=== PATIENT | male | born 1960 | race Caucasian/White ===

== ENCOUNTER 2020-10-22 08:11 | Outpatient (REF) | payer OTHER, SELFPAY ==
[2020-10-22 09:10] LABS: MANUAL DIFF FLAG NO
[2020-10-22 09:14] LABS: Basophils Percent Auto 0.3 % (0-2); Eosinophils Absolute Auto 0.1 X10*3/uL (0.0-0.4); Eosinophils Percent Auto 1.5 % (0-4); Hematocrit 43.5 % (42-52); Hemoglobin 14.4 g/dl (14.0-18.0); Imm Gran Abs Auto 0.02 X10*3/uL (0.00-0.03); Imm Gran Pct Auto 0.3 % (0.0-0.4); Lymphocytes Absolute Auto 2.9 X10*3/uL (1.2-4.9); Lymphocytes Percent Auto 43.7 % (20-40); Mean Corpuscular HGB Conc 33.1 g/dl (31.0-36.0); Mean Corpuscular Hemoglobin 33.3 pg (27.0-33.0); Mean Corpuscular Volume 100.5 fL (80-98); Mean Platelet Volume 9.7 fL (9.4-12.4); Monocytes Absolute Auto 0.7 X10*3/uL (0.1-1.2); Monocytes Percent Auto 10.3 % (2-11); Neutrophils Absolute Auto 2.9 X10*3/uL (2.0-8.3); Neutrophils Percent Auto 43.9 % (45-73); Platelet Count 217 X10*3/uL (160-400); Red Blood Count 4.33 X10*6/uL (4.60-5.80); White Blood Count 6.6 X10*3/uL (4.8-10.8)
[2020-10-22 09:45] LABS: Alanine Aminotransferase 19 U/L (0-40); Albumin Level 4.4 g/dL (3.5-5.0); Alkaline Phosphatase 76 U/L (39-117); Anion Gap 11 (12-20); Aspartate Amino Transferase 20 U/L (5-37); Bilirubin Total 0.8 mg/dL (0.0-1.0); Blood Urea Nitrogen 23 mg/dL (9-16); Calcium 9.6 mg/dL (8.4-10.2); Carbon Dioxide 29 mmol/L (22-29); Chloride 106 mmol/L (96-108); Cholesterol 223 mg/dL; Estimated Glomerular Filt Rate > 60; Glucose Fasting 102 mg/dL (60-99); HDL Cholesterol 57 mg/dL; LDL Cholesterol Calculated 143 mg/dl; Potassium 4.7 mmol/L (3.3-5.1); Sodium 141 mmol/L (135-145); Total Protein 7.2 g/dL (6.5-8.0); Triglycerides 116 mg/dL
[2020-10-22 10:08] LABS: Thyroid Stimulating Hormone 1.92 uIU/mL (0.32-4.0)
== END 2020-10-22 08:12 | disposition home or self-care (01) ==
LOC: HO.LAB 08:11
PROVIDERS: PCP Internal Medicine; Visit Provider Internal Medicine
DX: Z00.00 Encounter for general adult medical examination without abnormal findings (principal); E03.9 Hypothyroidism, unspecified; E11.9 Type 2 diabetes mellitus without complications
CPT/HCPCS: 36415; 80053; 80061; 84443; 85025

== ENCOUNTER → 2020-11-16 11:44 | Outpatient (BNVA) | payer OTHER, SELFPAY | PROVIDERS: PCP Internal Medicine; Visit Provider Physician Assistant | DX: Z12.11 Encounter for screening for malignant neoplasm of colon (principal); K64.9 Unspecified hemorrhoids | CPT/HCPCS: Q3014 ==

== ENCOUNTER 2020-12-30 12:35 | Day surgery (SDC) | payer OTHER, SELFPAY ==
[2020-12-24 11:13] VITALS: BMI 29.7
--- NOTE | 2020-12-29 09:08 | HO.ANESPROP2 ---
Documented by User: Zahraa Loja 12/29/20 09:08 HPI - Anesthesia Eval Consult details Narrative: 60yo M for Colonoscopy PMFSH Active Problems Active Problems: All Active Problems (Updated 11/16/20 @ 12:03 by Lidia Oconnor PA-C) Hemorrhoids (Acute) Encounter for screening colonoscopy (Acute) Physical exam (Acute) Past Medical History Medical History Hemorrhoids Family History Family History Father No problems noted. Mother No problems noted. Surgical History Surgical History Hx of wisdom tooth extraction Social History Social History Household Members: Friend(s) Are you a primary post acute care registered nurse to a significant other at home: No Do you presently have visiting nurse or other home services: No Alcohol intake: current Alcohol intake frequency: other Cigarettes Per Day: 20 Are you DNR?: No Advance Directives: No Advance Directives Information Provided: No Advance Directives on File: No Recently lost weight without trying: No Eating poorly because of decreased appetite: No Nutrition Risks: No Nutritional Risk Current occupational status: employed Meds Allergies Allergy/AdvReac Type Severity Reaction Status Date / Time No Known Allergies Allergy Verified 12/24/20 08:18 Exam Exam Date and Time: December 29, 2020 0908 Height,Weight and Vital Signs: Height 5 ft 10 in Weight 93.894 kg Assessment and Plan Assessment Anesthesia Assessment: Chart Reviewed Documented by User: Alexander Chaudhry MD 12/30/20 12:51 PMFSH Past Medical History Medical History Hemorrhoids Family History Family History Father No problems noted. Mother No problems noted. Surgical History Surgical History Hx of wisdom tooth extraction Social History Social History Household Members: Friend(s) Are you a primary post acute care registered nurse to a significant other at home: No Do you presently have visiting nurse or other home services: No Alcohol intake: current Alcohol intake frequency: other Cigarettes Per Day: 20 Are you DNR?: No Advance Directives: No Advance Directives Information Provided: No Advance Directives on File: No Recently lost weight without trying: No Eating poorly because of decreased appetite: No Nutrition Risks: No Nutritional Risk Current occupational status: employed Meds Allergies Allergy/AdvReac Type Severity Reaction Status Date / Time No Known Allergies Allergy Verified 12/24/20 08:18 Assessment and Plan Assessment Anesthesia Assessment: Anesthesia Plan Discussed and Chart Reviewed Final Anesthetic Review NPO: Yes ASA Class: II Final Preanesthetic Review: No Changes in Pt Med Stat, Meds/Allgs Chart Reviewed, Consent Obtained/Reviewed and Anes Risks/Benef Reviewed Patient Risk: Low Procedure Risk: Low Anesthetic Plan Anesthetic Plan: MAC: Disposition: Standard PACU
[2020-12-30 12:56] VITALS: BP 135/94; PULSE 83; RESP 18; TEMP 36.4; O2SAT 99
--- NOTE | 2020-12-30 13:04 | MHC.SHP ---
Pre-Procedural Eval Section B Chief Complaint: Screening Relevant Family History (Specify if Yes): No Relevant Social History: Tobacco Use Present Medications: see Short Stay Collaborative assessment Medical History: Significant History (Hemorrhoids) History of Previous Operations: Relevant previous surgery/procedure and date(s) (wisdom toothe xtraction) Allergies: Allergies Allergy/AdvReac Type Severity Reaction Status Date / Time No Known Allergies Allergy Verified 12/30/20 12:54 Review of Systems Sugical H&P ROS: Negative: Constitution, Cardiovascular, Respiratory, Neurological, Psychiatric, Hem-Onc, Allergic/Immunologic, Gastrointestinal, Genitourinary, Musculoskeletal, Integumentary, Endocrine and Eyes/Ears/Nose/Throat Exam Surgical H&P Exam: Normal: HEENT, Normal: Heart, Normal: Lungs, Normal: Extremities, Normal: Abdomen, Normal: Skin and Normal: Neurological Plan Diagnosis/Plan: Unchanged I have reviewed the history and physical and performed a pertinent physical examination on my patient. No changes have occurred unless specified.
[2020-12-30] MEDS: Lactated Ringers 1,000 ML 100 ML IVCONT (13:19)
--- NOTE | 2020-12-30 13:41 | PM.OP ---
Brief Operative Note Date of Service: 12/30/20 Pre-op diagnosis: colon screen Post-op diagnosis: same Procedure: see op note Surgeon: Aisha Ocampo MD Anesthesia: MAC Was an Cloth Doubling Machine Operator used for this Procedure?: No Estimated blood loss (mL): 0 Condition: stable Disposition: PACU
--- NOTE | 2020-12-30 13:42 | P.OP_ITS ---
Operative Note Operative Note Date of Service: 12/30/20 Narrative: Operative Information Procedure Description: Colonoscopy COLONOSCOPY Instrument: Olympus variable stiffness pediatric scope 190L Colonoscopy Monitoring: Vital signs and clinical assessment, continuous EKG monitoring, Pulse oximetry, Carbon Dioxide monitoring and blood pressure monitoring were done throughout the procedure. Colon withdrawal time was 10 minutes. Procedure: The patient was placed in the left lateral decubitis position and pre-procedure medications were administered. After a digital rectal examination of the ano-rectum, the video colonoscope was inserted into the rectum and advanced through the colon to the cecum/TI. The colonoscope was slowly withdrawn in a retrograde panoramic fashion and the colon mucosa was carefully examined including a retroflexed view of the rectum. Findings and interventions are described below. Procedure Difficulty:easy Findings: Terminal Ileum-normal Cecum: 4-6 mm sessile polyp removed with forceps Ascending Colon: normal Transverse Colon -normal Descending Colon: 8-10 mm sessile polyp removed with forceps Sigmoid Colon: scattered small diverticula noted, moderate severity Rectum: Retroflexion with moderate sized inflammed internal hemorrhoids, grade II Anorectum - internal hemorrhoids seen at anal verge Colon preparation: [place] Bowel Preparation Scale Right colon; 2 Transverse colon: 3 Left colon; 3 (0 = Unprepared colon segment with mucosa not seen due to solid stool that cannot be cleared. 1 = Portion of mucosa of the colon segment seen, but other areas of the colon segment not well seen due to staining, residual stool and/or opaque liquid. 2 = Minor amount of residual staining, small fragments of stool and/or opaque liquid, but mucosa of colon segment seen well. 3 = Entire mucosa of colon segment seen well with no residual staining, small fragments of stool or opaque liquid) Impression and Post Procedure Diagnosis: polyps internal hemorrhoids diverticular disease Plan: High fiber diet leaflet Avoid straining at stool, epsom salts and sitz bath, anusol supps or cream Repeat Colonoscopy in 5-7 years or earlier if clinically indicated Above findings were reviewed with the patient and relevant handouts were provided if indicated.
[2020-12-30 14:20] VITALS: BP 111/66; PULSE 72; RESP 16; TEMP 36.3; O2SAT 97
[2020-12-30 14:35] VITALS: BP 122/83; PULSE 65; RESP 18; TEMP 36.3; O2SAT 97
== END 2020-12-30 15:22 | disposition home or self-care (01) ==
PROVIDERS: PCP Internal Medicine; Visit Provider Internal Medicine Gastroenterology
PROC: 0DJD8ZZ Inspection of Lower Intestinal Tract, Via Natural or Artificial Opening Endoscopic (ICD-10-PCS; CPT 45378; principal; 2020-12-30 13:50)
DX: Z12.11 Encounter for screening for malignant neoplasm of colon (principal); D12.4 Benign neoplasm of descending colon; K63.5 Polyp of colon; K57.30 Diverticulosis of large intestine without perforation or abscess without bleeding; K64.1 Second degree hemorrhoids; F17.210 Nicotine dependence, cigarettes, uncomplicated; F10.10 Alcohol abuse, uncomplicated
CPT/HCPCS: 45380; 88305

== ENCOUNTER 2021-04-01 08:16 | Outpatient (REF) | payer OTHER, SELFPAY ==
--- NOTE | 2021-04-06 11:45 | MHC.AU.ANO ---
Adult Audiological Evaluation Date of Visit: 04/01/21 Reason for Appointment: Long-standing history of hearing difficulty, first diagnosed in 2001. Patient questions if there has been a change in his hearing. Patient has never used hearing aids. Does patient feel they have a hearing loss?: Yes If Yes, Which Ear?: Both Ears Ear History: Ear Deformity: None Reported Recent Ear Drainage: None Reported Recent Ear Pain: None Reported Family History of Hearing Loss?: Yes: Father Recent Ear Infections: None Reported Ear Infections in Childhood: None Reported History of Ear Wax Buildup: None Reported Previous Ear Surgery: None Reported Bothersome Tinnitus/Ringing/Noises in Ears: Both Ears Ear used on the phone: Right Ear Blocked/Full Sensation in Ear(s): None Reported History of occupational noise exposure?: Yes: [employer]- 40 Years History: No Otoscopy: Right Ear: Unremarkable Left Ear: Unremarkable Tympanometry: Tympanometry performed due to: To assess integrity of the middle ear system Right Ear: Normal Middle Ear System (Type A) Left Ear: Normal Middle Ear System (Type A) Hearing Evaluation: Transducer(s) Used: Insert Earphones Method: Conventional Audiometry Stimuli Used: Pure Tones Right Ear: Description of Hearing: Normal from 250-1500 Hz, steeply sloping to moderately-severe/severe sensorineural hearing loss Left Ear: Description of Hearing: Normal from 250-1500 Hz, steeply sloping to moderately-severe/severe sensorineural hearing loss Speech Recognition Threshold (SRT): Method Used: Recorded Lists Stimuli Used: Spondee Words Right Ear: 15 dBHL Left Ear: 15 dBHL Word Discrimination: Method: Recorded Lists Word Lists Used: W-22 Right Ear: 96% at 65 dBHL Left Ear: 92% at 65 dBHL Most Comfortable Level (MCL): Right Ear: 65 dBHL Left Ear: 65 dBHL Comparison: Compared to most recent evaluation: Compared to the 2002 evaluation, high frequency thresholds have decreased significantly. Recommendations: Audiological re-evaluation in one year. Trial with amplification is recommended. Patient plans to contact [employer]. Diagnosis: Primary Diagnosis: H90.3 Bilateral Sensorineural Hearing Loss Signature: Provider: Dasha Rivera, CCC-A
== END 2021-04-01 08:17 | disposition home or self-care (01) ==
LOC: HO.SH 08:16
PROVIDERS: Visit Provider Internal Medicine
DX: H90.3 Sensorineural hearing loss, bilateral (principal)
CPT/HCPCS: 92557; 92567

== ENCOUNTER 2021-06-15 08:53 | Outpatient (REF) | payer OTHER, SELFPAY ==
--- NOTE | ~2021-06-15 | XR_ITS ---
EXAMINATION: BILATERAL SHOULDER X-RAY CLINICAL INFORMATION: Bilateral shoulder pain COMPARISON: None TECHNIQUE: 4 views of each shoulder FINDINGS: Bone alignment is normal. No fracture or dislocation is seen. The glenohumeral joints are normal. There is mild arthritis at the acromioclavicular joints. Soft tissues are unremarkable. XR/XR shoulder LT min 2V IMPRESSION: Mild arthritis at the acromioclavicular joints.
--- NOTE | ~2021-06-15 | XR_ITS ---
EXAMINATION: BILATERAL SHOULDER X-RAY CLINICAL INFORMATION: Bilateral shoulder pain COMPARISON: None TECHNIQUE: 4 views of each shoulder FINDINGS: Bone alignment is normal. No fracture or dislocation is seen. The glenohumeral joints are normal. There is mild arthritis at the acromioclavicular joints. Soft tissues are unremarkable. XR/XR shoulder RT min 2V IMPRESSION: Mild arthritis at the acromioclavicular joints.
== END 2021-06-15 08:54 | disposition home or self-care (01) ==
LOC: HO.XRAY 08:53
PROVIDERS: PCP Internal Medicine; Visit Provider Internal Medicine
DX: M25.511 Pain in right shoulder (principal); M25.512 Pain in left shoulder
CPT/HCPCS: 73030

== ENCOUNTER 2021-07-22 14:00 | Outpatient (RCR) | payer OTHER, SELFPAY ==
--- NOTE | 2021-07-06 14:33 | MHC.PT.EP ---
[facility] [place] Office [place] Office [place] Office [address] [phone] F: [phone] F: [phone] F: [phone] F: [phone] Physical Therapy Plan of Care Date of Evaluation: Date of Surgery: N/A Diagnosis: Pain in unspecified shoulder Assessment: Pt is a 61yo M who presents to PT with B shoulder pain, R>L after performing repetitive movements at work. He presents today with current impairments in pain, decreased ROM, decreased strength, and impaired posture. He had (+) Hawkin's Manuel and Empty Can test on R shoulder. He is limited functionally by reaching, overhead ADLs, putting on a jacket, pushing, and pulling. His signs and symptoms may be consistent with R shoulder impingement. He is an excellent candidate for skilled PT services to address current impairments in order to facilitate return to OF. He will be seen 2x/week for 4 weeks and will be reassessed at that time. Frequency and Duration: The patient will be seen 2x/week for 4 weeks Short Term Goals: Pt will be I with HEP to promote self management of symptoms Pt will improve shoulder flexion by at least 5 degrees B Pt will demonstrate improvements in postural awareness throughout the day Assisted Goals: Pt will demonstrate full ROM and strength through B shoulders Pt will perform overhead ADLs without compensation and with pain < 2 / 10 Pt will demonstrate improvements in functional mobility as evidenced by statistically significant improvement in SPADI outcome measure Treatment Plan: Modalities to reduce pain, spasms and effusion. Manual therapy to restore motion and function. Therapeutic exercise to improve strength and flexibility. Neuromuscular re-education for posture and balance. Therapeutic activities to return to functional activities of daily living. Electronically signed by: Komal Jack, PT, DPT Please sign and return to therapist. Thank you for your referral.
--- NOTE | 2021-09-07 15:29 | MHC.PT.DC ---
[facility] [place] Office [place] Office [place] Office [address] [phone] F: [phone] F: [phone] F: [phone] F: [phone] Physical Therapy Discharge Report Diagnosis: Pain in unspecified shoulder Date of Surgery: N/A Date of Evaluation: 07/06/21 Date of Discharge: 09/07/21 Treatments to Date: 3 Cancellations to Date: 3 No Shows to Date: Discharge Status: Discharge Summary: Pt attended PT from 07/06/21-07/22/21. His last attended PT visit was 07/22/21. He cancelled his last 2 scheduled appointments and did not reschedule. Pt is being D/C from skilled PT services at this time. Pt current level of function unknown at this time. Electronically signed by: Komal Jack, PT, DPT Please sign and return to therapist. Thank you for your referral.
== END 2021-09-07 15:30 | disposition home or self-care (01) ==
LOC: HO.PT 14:00
PROVIDERS: PCP Internal Medicine; Visit Provider Internal Medicine
DX: M25.511 Pain in right shoulder (principal)
CPT/HCPCS: 97110; 97161

== ENCOUNTER 2024-05-12 12:57 | Outpatient (AMB) | payer OTHER, SELFPAY ==
[2024-05-12 12:58] VITALS: BP 124/84; PULSE 76; O2SAT 98; BMI 27.7
--- NOTE | 2024-05-12 12:58 | A.OFFPC_ITS ---
Vital Signs 05/12/24 12:58 Height 5 ft 10 in Weight 193 lb BMI 27.7 BP 124/84 Blood Pressure Location Lt brachial Position Sitting Pulse 76 Pulse Source Pulse Oximeter Pulse Oximetry (%) 98 Oxygen Delivery Method Room Air Intake Visit Reasons: Pain On Hip Occupational Physician Required: No Accompanied by: Self / Same As Patient Allergies No Known Allergies Allergy (Verified 05/12/24 13:00) Medication List - Last Reconciled 05/12/24 by Frank Neff MD No Known Home Meds Tobacco use date assessed: 05/12/24 Dental Screening Dental Screen Date: 05/12/24 Did you have a dental visit in the last 12 months?: Yes Did you have a dental problem in the last 6 months where you did not have access to dental care?: No Was dental information given to patient?: Patient has dentist HPI Pain On Hip HPI Details right paralumbar pain and right hip pain for a few weeks; radiation down roght leg to below knee PFSH Medical History Hemorrhoids Surgical History Hx of wisdom tooth extraction Family History Father Substance use disorder Mental health disorder Mother Substance use disorder Social History (Updated 12/28/21 @ 10:05 by WILLIAMS Jerez) Household Members: Friend(s) Housing: House Are you a primary child care teacher to a significant other at home: No Do you presently have visiting nurse or other home services: No Alcohol intake: current Alcohol intake frequency: a few times a week Patient Tobacco Use Status: Current everyday Tobacco user Tobacco use type: Cigarette Cigarette Packs Per Day: 1 Cigarettes Per Day: 20 e-Cigarette/Vaping Use: Never Used Second Hand Smoke Exposure: Yes service: No Current occupational status: employed Cognitive needs: No Hearing needs: No Vision needs: No Questionnaire PHQ-9 Over the last 2 weeks, how often have you been bothered by any of the following problems? 1. Little interest or pleasure in doing things: not at all 2. Feeling down, depressed, or hopeless: not at all 3. Trouble falling or staying asleep, or sleeping too much: not at all 4. Feeling tired or having little energy: not at all 5. Poor appetite or overeating: not at all 6. Feeling bad about yourself - or that you are a failure or have let yourself or your family down: not at all 7. Trouble concentrating on things, such as reading the newspaper or watching television: not at all 8. Moving or speaking so slowly that other people could have noticed. Or the opposite - being so fidgety or restless that you have been moving around a lot more than usual: not at all 9. Thoughts that you would be better off or of hurting yourself in some way: not at all Total score: 0 Depression Screening Interpretation: Negative Depression Screening Done: Yes 27780 - PHQ-9 Billing: Yes Source: Developed by Drs. Amrit Briones, Hansa Travis, Enoc Koenig and colleagues, with an educational kd from [employer]. Thrive Questionnaire Date Thrive assessed: 05/12/24 I am a: Patient What is your living situation today?: I have a steady place to live Within the past 12 months, did the food you bought not last and you didn't have the money to get more?: Never true Within the past 12 months, did you worry whether your food would run out before you got money to buy more?: Never true Do you have trouble paying for medicines?: No Do you have trouble getting transportation to medical appointments?: No Do you have trouble paying your heating and electricity bill?: No Do you have trouble taking care of your child, family member or friend?: No Do you have trouble with day-to-day activities such as bathing, preparing meals, shopping, managing finances, etc.?: No Are you currently unemployed and looking for a job?: No Are you interested in more education?: No Please select the resources that you would like help with: None THRIVE Score: 0 AUDIT C Alcohol Use Questionnaire (AUDIT-C) 1. How often do you have a drink containing alcohol?: 2-3 times a week 2. How many drinks containing alcohol do you have on a typical day when you are drinking?: 1 or 2 3. How often do you have six or more drinks on one occasion?: Never Total Score: 3 Score Reviewed/Action Taken: Yes KENZIE-7 AMB Questionnaire KENZIE-7 Date KENZIE - 7 assessed: 05/12/24 Feeling nervous, anxious, or on edge: 0 = Not at all Not being able to stop or control worryin = Not at all Worrying too much about different things: 0 = Not at all Trouble relaxin = Not at all Being so restless that it is hard to sit still: 0 = Not at all Becoming easily annoyed or irritable: 0 = Not at all Feeling afraid as if something awful might happen: 0 = Not at all Total KENZIE-7 score (0-4 normal; 5-9 mild; 10-14 moderate; 15-21 severe): 0 Source: Developed by Drs. Amrit Briones, Hansa Travis, Enoc Koenig and colleagues, with an educational kd from [employer]. KENZIE-7 Assessment Billing KENZIE-7 Assessment Tool: KENZIE-7 Assessment 36687 Review of Systems Const Denies chills, Denies headache(s) and Denies weight loss ENT Denies headache(s) Card Denies chest pain, Denies syncope, Denies irregular heart rhythm and Denies dyspnea Resp Denies chest congestion, Denies cough and Denies dyspnea GI Denies abdominal pain, Denies change in stool character, Denies nausea and Denies vomiting Musc Denies deformity and Denies joint swelling Neuro Denies syncope and Denies headache(s) Physical exam (Primary Care) Vital Signs: Last Vital Signs Pulse 76 05/12/24 12:58 BP 124/84 05/12/24 12:58 Pulse Ox 98 05/12/24 12:58 Oxygen Delivery Method Room Air 05/12/24 12:58 BMI result Body Mass Index 27.7 Tobacco/Smoking Status: Tobacco use Status Tobacco use date assessed 05/12/24 05/12/24 13:03 Patient Tobacco Use Status Current everyday Tobacco 05/12/24 13:03 Tobacco use type Cigarette 05/12/24 13:03 e-Cigarette/Vaping Use Never Used 05/12/24 13:03 PHQ-9: PHQ-9 Score PHQ-9: Total score 0 05/12/24 13:03 Depression Screening Interpretation: Negative Thrive Assessment: Date of Thrive Assessment Date Thrive assessed 05/12/24 05/12/24 13:03 Const General: cooperative, comfortable, no acute distress and alert Neck Neck: Yes no lymphadenopathy Thyroid: Thyroid normal Resp Effort & Inspection: normal respiratory effort Auscultation: clear to auscultation bilaterally Percussion: percussion normal Cardio Jugular venous distension: no JVD Palpation: normal PMI Rate: regular rate Rhythm: regular rhythm Heart sounds: S1 normal heart sound present and S2 normal heart sound present GI Inspection: Yes normal to inspection Palpation (GI): No hepatosplenomegaly present Skin General skin exam: no rashes or lesions noted Extrem General: Yes no clubbing, cyanosis or edema Coding Level of Care Code Est Pt Level 3 (06151) Diagnoses Lumbar radiculopathy M54.16 Additional Codes KENZIE-7 Assessment Billing - KENZIE-7 Assessment Tool: KENZIE-7 Assessment 44474 ([id number]) Assessment & Plan Assessment & Plan (1) Lumbar radiculopathy: Code(s): M54.16 - Radiculopathy, lumbar region Category: Medical Plan: xr Orders: Orders XR lumbar spine 2-3V Today M54.9 - Dorsalgia, unspecified XR hip RT min 2V Today M25.559 - Pain in unspecified hip
== END 2024-05-12 13:17 | disposition home or self-care (01) ==
PROVIDERS: PCP Internal Medicine; Visit Provider Internal Medicine
DX: M54.16 Radiculopathy, lumbar region (principal)

== ENCOUNTER 2024-05-12 12:57 | Outpatient (REF) | payer OTHER, SELFPAY ==
--- NOTE | ~2024-05-12 | XR_ITS ---
Examination: X-ray lumbar spine, right hip CLINICAL INDICATION: Back pain, hip pain COMPARISON: None TECHNIQUE: 2 views right hip. 3 views lumbar spine. FINDINGS: RIGHT HIP: Mild degenerative changes in the right hip. Alignment maintained. Vascular calcifications are present. LUMBAR SPINE: Moderate degenerative changes in the bilateral sacroiliac joints. Facet arthritis lower lumbar spine. Atherosclerotic aortic calcifications. Mild dextroscoliosis of the thoracic spine. Multilevel lumbar spondylosis with moderate loss of disc space height at L4-L5 and moderate to marked loss of disc space height at L5-S1. XR/XR hip RT min 2V IMPRESSION: 1. Mild degenerative changes in the right hip. 2. Moderate degenerative changes bilateral sacroiliac joints. 3. Multilevel lumbar spondylosis most notable at L4-L5 and L5-S1. Electronically signed by: Katya Polanco MD 06/03/2024 10:14 AM EDT
--- NOTE | ~2024-05-12 | XR_ITS ---
Examination: X-ray lumbar spine, right hip CLINICAL INDICATION: Back pain, hip pain COMPARISON: None TECHNIQUE: 2 views right hip. 3 views lumbar spine. FINDINGS: RIGHT HIP: Mild degenerative changes in the right hip. Alignment maintained. Vascular calcifications are present. LUMBAR SPINE: Moderate degenerative changes in the bilateral sacroiliac joints. Facet arthritis lower lumbar spine. Atherosclerotic aortic calcifications. Mild dextroscoliosis of the thoracic spine. Multilevel lumbar spondylosis with moderate loss of disc space height at L4-L5 and moderate to marked loss of disc space height at L5-S1. XR/XR lumbar spine 2-3V IMPRESSION: 1. Mild degenerative changes in the right hip. 2. Moderate degenerative changes bilateral sacroiliac joints. 3. Multilevel lumbar spondylosis most notable at L4-L5 and L5-S1. Electronically signed by: Katya Polanco MD 06/03/2024 10:14 AM EDT
== END 2024-05-12 12:58 | disposition home or self-care (01) ==
LOC: HO.XRAY 12:57
PROVIDERS: PCP Internal Medicine; Visit Provider Internal Medicine
DX: M54.16 Radiculopathy, lumbar region (principal); M54.9 Dorsalgia, unspecified; M25.551 Pain in right hip
CPT/HCPCS: 72100; 73502; 96127; 99212

== ENCOUNTER 2024-08-29 07:56 | Outpatient (RCR) | payer OTHER, SELFPAY ==
--- NOTE | 2024-08-05 10:26 | MHC.PT.EP ---
[facility] [place] Office [place] Office [place] Office [address] [phone] F: [phone] F: [phone] F: [phone] F: [phone] Physical Therapy Plan of Care Date of Evaluation: 08/04/24 Date of Surgery: Diagnosis: LBP Assessment: 64 YO MALE REF TO PT WITH LBP, SUSTAINED IN APR 2024- HE NOTES HE ORIGINALLY HAD RADICULAR SXS INTO Rt THIGH - HE HAS BEEN PURSUING MASSAGE THERAPY- HE IS A REES, BUT HAS DECR HIS WORK LOAD AT THE CURRENT TIME. HIS XRAYS REVEALED Rt HIP OA AND RUDI SI Jt OA. OBJECTIVELY, (+) LUMBOPELVIC ASYM, MILD THORACOLUMBAR SCOL CURVE CREATING LLI, HE HAS WNL SQUAT MECH AND ROM, (+) TISSUE TENSION IN RUDI LUMBOSACRAL PS MM- CURRENTLY DENIES RADIC SXS. HE WOULD LIKE GUIDANCE W A HEP TO REDUCE RISK OF REINJURY. Frequency and Duration: The patient will be seen 2 x WK x 4 WKS Short Term Goals: *INITIATE HEP TO IMPROVE LE PROPRIOCEPTION/ LUMBOPELVIC STABILITY *Pt'S LB/ SI/Rt HIP PAIN DECR TO 2-3/10 AT MAX *INCR FLEXIB IN PSOAS/HIP IR/ CALF MM Longterm Goals: *Pt WILL IMPROVE LUMBOPELVIC/ LE STRENGTH *Pt INDEP W PROGRESSIVE HEP AND SELF-SX MGMT TECHN Treatment Plan: Modalities to reduce pain, spasms and effusion. Manual therapy to restore motion and function. Therapeutic exercise to improve strength and flexibility. Neuromuscular re-education for posture and balance. Therapeutic activities to return to functional activities of daily living. Electronically signed by: NONA TANG,PT Please sign and return to therapist. Thank you for your referral.
--- NOTE | 2024-08-29 09:33 | MHC.PT.EP ---
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 HIS XRAYS REVEALED Rt HIP OA AND RUDI SI Jt OA. OBJECTIVELY, (+) LUMBOPELVIC ASYM, MILD THORACOLUMBAR SCOL CURVE CREATING LLI, HE HAS WNL SQUAT MECH AND ROM, (+) TISSUE TENSION IN RUDI LUMBOSACRAL PS MM- CURRENTLY DENIES RADIC SXS. HE WOULD LIKE GUIDANCE W A HEP TO REDUCE RISK OF REINJURY. Frequency and Duration: The patient will be seen 2 x WK x 4 WKS Short Term Goals: *INITIATE HEP TO IMPROVE LE PROPRIOCEPTION/ LUMBOPELVIC STABILITY *Pt'S LB/ SI/Rt HIP PAIN DECR TO 2-3/10 AT MAX *INCR FLEXIB IN PSOAS/HIP IR/ CALF MM Mcfp Goals: *Pt WILL IMPROVE LUMBOPELVIC/ LE STRENGTH *Pt INDEP W PROGRESSIVE HEP AND SELF-SX MGMT TECHN Treatment Plan: Modalities to reduce pain, spasms and effusion. Manual therapy to restore motion and function. Therapeutic exercise to improve strength and flexibility. Neuromuscular re-education for posture and balance. Therapeutic activities to return to functional activities of daily living. Electronically signed by: NONA TANG,PT Please sign and return to therapist. Thank you for your referral.
--- NOTE | 2024-08-29 09:43 | MHC.PT.DC ---
[facility] [place] [facility] [place] Office [place] Office [address] Nieves Major [address] [phone] F: [phone] F: [phone] F: [phone] F: [phone] Physical Therapy Discharge Report Diagnosis: LBP Date of Surgery: Date of Evaluation: 08/04/24 Date of Discharge: 08/29/24 Treatments to Date: 6 Cancellations to Date: No Shows to Date: 0 Discharge Status: Achieved Goals Improved Function Independent with HEP Discharge Summary: KEN HAS PROGRESSED NICELY IN PT- HE HAS IMPROVED HIP AND LUMBAR FLEXIBILITY, MORE EFFICIENT CORE ENGAGEMENT, AND WNL SQUAT MECHANICS. HE STATED HIS OVERALL SXS HAVE RESOLVED AND CURRENTLY EXPERIENCES SOME MILD Rt HIP AREA SORENES WITH DRIVING > 1-2 HRS. THE Pt IS INDEP W HEP AND SX MGMT TECHN. HE AGREES W D/C FROM PT WITH HIS HEP AT THIS TIME. Electronically signed by: NONA TANG,PT Please sign and return to therapist. Thank you for your referral.
== END 2024-08-29 09:48 | disposition home or self-care (01) ==
LOC: HO.PT 07:56
PROVIDERS: PCP Internal Medicine; Visit Provider Internal Medicine
DX: M54.50 Low back pain, unspecified (principal)
CPT/HCPCS: 97110; 97112; 97140; 97161; 97535